=== PATIENT | male | born 1970 | race Two or more races ===

== ENCOUNTER 2022-08-09 13:21 | Emergency (ER) | payer SELFPAY ==
[~2022-08-09] VITALS: Ht 170.2 cm; Wt 83.7 kg
[2022-08-09 14:44] VITALS: BP 129/102
[2022-08-09] MEDS ORDERED: HYDROcodone-ACET 5/325MG TAB PO ONE (15:30)
[2022-08-09] MEDS ORDERED: IBUP600T28 PO (16:56)
[2022-08-09] MEDS ORDERED: HYDR-4902 PO (16:59)
== END 2022-08-09 17:12 | disposition home or self-care (01) ==
LOC: ER 13:21
DX: S42.021A Displaced fracture of shaft of right clavicle, initial encounter for closed fracture (principal); V89.2XXA Person injured in unspecified motor-vehicle accident, traffic, initial encounter; Y93.G3 Activity, cooking and baking; Y92.89 Other specified places as the place of occurrence of the external cause; Y99.8 Other external cause status
CPT/HCPCS: 72070; 73000; 73010